=== PATIENT | male | born 1990 | race Caucasian/White ===

== ENCOUNTER 2024-12-12 13:37 | Emergency (ER) | payer OTHER, SELFPAY ==
[2024-12-12 13:54] VITALS: BP 122/82; PULSE 81; RESP 16; TEMP 36.5; O2SAT 99
--- NOTE | 2024-12-12 14:35 | ED.GENADULT ---
HPI - General Adult General Chief complaint: Dental/Oral Stated complaint: left side tooth issue work note History of Present Illness HPI narrative: Enzo Segura is a 34 y/o male who presents with reports of having dental pain to the left lower molars that started Sunday and feeling worse. Denie any fever/chills Related Data Allergies Allergy/AdvReac Type Severity Reaction Status Date / Time Penicillins Allergy Mild HIVE Verified 12/12/24 14:10 acetaminophen Allergy Unknown HIVES Verified 12/12/24 14:10 hydrocodone Allergy Unknown Hives Verified 12/12/24 14:10 oxycodone Allergy Unknown Hives Unverified 12/12/24 14:10 Review of Systems Review of Systems: All systems reviewed & are unremarkable except as noted in HPI and below Exam Narrative: GENERAL: Well-appearing, well-nourished, and in no acute distress. HEAD: Normocephalic, atraumatic. EYES: PERRLA and EOMI. ENT: Nares clear, no rhinorrhea or epistaxis. Mucous membranes moist. Oropharynx without tonsillar hypertrophy exudate + dental decay to the left lower molar number 18-20, Bilateral TMs pearly crane non bulging NECK: Supple. No adenopathy or masses. CHEST: Clear to auscultation. No respiratory distress. No wheezes rales or rhonchi HEART: Regular rate and rhythm. No murmur heard. Normal peripheral pulses. ABDOMEN: Soft, nontender, nondistended, normal active bowel sounds. EXTREMITIES: Normal range of motion. No edema. SKIN: Warm, dry, no rash. NEURO: No focal deficits. Alert and oriented x3. PSYCH: Normal mood and affect. Course Course Level of Care: Express Care Visit Vital Signs Vital signs: Vital Signs Temperature 36.5 C 12/12/24 13:54 Pulse Rate 81 12/12/24 13:54 Respiratory Rate 16 12/12/24 13:54 Blood Pressure 122/82 12/12/24 13:54 Pulse Oximetry 99 12/12/24 13:54 Oxygen Delivery Room Air 12/12/24 13:54 Temperature 36.5 C 12/12/24 13:54 Pulse Rate 81 12/12/24 13:54 Respiratory Rate 16 12/12/24 13:54 Blood Pressure 122/82 12/12/24 13:54 Pulse Oximetry 99 12/12/24 13:54 Oxygen Delivery Room Air 12/12/24 13:54 Medical Decision Making MDM Narrative Medical decision making narrative: Patient with worsening dental pain and dental decay. No palpable abscess. No systemic signs or symptoms. Antibiotics course provided. Follow-up instructions given for dental/oral surgery clinics. Patient was given return precautions and discharged home in stable condition. Pulse oximetry interpretation: not hypoxic. Disposition: Discharge to home in stable condition. Impression: Acute dental pain, likely due to dental caries. Medical Records Medical records reviewed: Yes I reviewed the external patient's medical records. Vital Signs Vital Signs: Vital Signs Temperature 36.5 C 12/12/24 13:54 Pulse Rate 81 12/12/24 13:54 Respiratory Rate 16 12/12/24 13:54 Blood Pressure 122/82 12/12/24 13:54 Pulse Oximetry 99 12/12/24 13:54 Oxygen Delivery Room Air 12/12/24 13:54 Temperature 36.5 C 12/12/24 13:54 Pulse Rate 81 12/12/24 13:54 Respiratory Rate 16 12/12/24 13:54 Blood Pressure 122/82 12/12/24 13:54 Pulse Oximetry 99 12/12/24 13:54 Oxygen Delivery Room Air 12/12/24 13:54 Vitals reviewed by me Discharge Plan Discharge Clinical Impression: Toothache, Dental caries Patient Disposition: Home, Self-Care Condition: Stable Instructions: Antibiotic Form Additional Instructions: Start Taking the antibiotics as ordered You may take Motrin for pain Follow up with a PCP as discussed Call to make an appointment with a dentist as soon as possible Patient Language: Urdu Prescriptions: New clindamycin HCl 150 mg capsule 450 mg PO TID 7 Days Qty: 63 0RF Follow-up/Referrals: PHYSICIAN,PRN OCCUPATIONAL THERAPIST [Primary Care Provider] - Stand Alone Forms: Work/School Release IP Time of Disposition: 14:39
== END 2024-12-12 14:43 | disposition home or self-care (01) ==
PROVIDERS: Emergency Provider Nurse Practitioner Family
DX: K08.89 Other specified disorders of teeth and supporting structures (principal)
CPT/HCPCS: 99203; G0463